=== PATIENT | female | born 1995 | race Caucasian/White ===

== ENCOUNTER 2025-04-28 06:02 | Day surgery (SDC) | payer MEDICAID, SELFPAY ==
[2025-04-27 11:10] VITALS: BMI 48.1
--- NOTE | 2025-04-27 13:18 | EXP.HP ---
History of Present Illness *Admission Date: 04/28/25 *History of present illness: Mrs. Varela is a 29-year-old female who is here for diagnostic upper endoscopy. The patient has struggled with dyspepsia (epigastric pain and discomfort), heartburn, reflux, nausea, vomiting, bloating and belching. The patient does have elevated liver chemistries and hepatomegaly. She has had some chronic diarrhea. She had cholecystectomy almost 10 years ago. Her paternal aunt had esophageal cancer diagnosed in her 50s or 60s. The examination is deemed medically necessary for diagnostic EGD. The patient has been seen, interviewed and examined prior to the procedure by both myself and the anesthesia provider. [facility] Disclaimer: The information contained in this section may have been updated after the patient was seen, as this information can be updated by other users. 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 Cigarette smoker Hyperlipidemia Anxiety Obesity Severe obesity (BMI >= 40) Migraine Vitamin D deficiency Fibrocystic disease of breast Edema Irritable bowel syndrome Prediabetes Bipolar disorder Recurrent major depression Dyslipidemia Hypertriglyceridemia Hyperinsulinism Surgical History Hx of appendectomy History of tubal ligation History of delivery Status post hysteroscopic ablation of endometrium History of cholecystectomy Family History Other Cancer Colon tumor Diabetes Heart disease Hypertension Non-Hodgkins lymphoma Tumor of pharynx Social History (Updated 04/28/25 @ 07:22 by Long Ceja CRNA) Smoking Status: Current every day smoker tobacco type: cigarettes alcohol intake: current alcohol intake frequency: holidays/special occasions only substance use type: denies use current occupational status: unemployed Travel in the last 8 weeks?: None Have you lived/traveled outside [place] in past 30 days?: No Contact w/someone who lives/traveled outside [place] past 30 days?: No Exposure to someone with infectious disease in past 14 days?: No Do you have a fever (greater than 100.4 F or 38 C)?: No Have you tested positive for COVID-19?: No Exposed to someone with COVID-19 in past 14 days?: No Do you have a sore throat?: No Do you have a cough?: No Do you have any weakness?: No Are you experiencing any nausea/vomitting?: No Do you have any diarrhea?: No Are you experiencing any unusual bleeding?: No Do you have any muscle aches/pain?: No Do you have any abdominal pain?: No Are you experiencing loss of taste or smell?: No Review of Systems Review of Systems Review of systems (narrative): Negative *Cardiovascular Comments: Negative *Gastrointestinal Comments: Negative *Genitourinary Comments: Negative *Musculoskeletal Comments: Negative *Neurologic Comments: Negative Meds Home Medications and Allergies Home Medications ?Medication ?Instructions ?Recorded ?Confirmed ?Type albuterol sulfate 90 mcg/actuation 1 puff inhalation NEEDED PRN 03/10/25 04/27/25 History aerosol inhaler (Ventolin HFA) Shortness Of Breath alprazolam 1 mg tablet 1 mg PO DAILY 03/10/25 04/27/25 History bupropion HCl 150 mg 24 hr tablet, 150 mg PO DAILY 03/10/25 04/27/25 History extended release cariprazine 1.5 mg capsule 1.5 mg PO DAILY 03/10/25 04/27/25 History (Vraylar) cholecalciferol (vitamin D3) 10 10 mcg PO DAILY 03/10/25 04/27/25 History mcg (400 unit) capsule folic acid 0.8 mg capsule 0.8 mg PO DAILY 03/10/25 04/27/25 History ondansetron 4 mg disintegrating 4 mg translingual NEEDED PRN 03/10/25 04/27/25 History tablet Nausea And Vomiting topiramate 50 mg tablet 50 mg PO BID 03/10/25 04/27/25 History semaglutide 0.25 mg or 0.5 mg (2 0.25 mg SQ WEEKLY 04/27/25 04/27/25 History mg/3 mL) subcutaneous pen injector (Ozempic) New Prescriptions to Start Prescriptions: Allergies Allergy/AdvReac Type Severity Reaction Status Date / Time clindamycin Allergy Intermediate Rash Verified 04/28/25 06:38 Penicillins Allergy Rash Verified 04/28/25 06:38 Exam Data for Last 24 hours I & O for Last 24 hours: Intake & Output 04/24/25 04/25/25 04/26/25 04/27/25 23:59 23:59 23:59 23:59 Weight 345 lb *Routine HEENT Exam Head: Present normocephalic Eye: Present EOMI and PERRL ENT: Present mucous membranes moist *Routine Neck Exam Neck: Present supple *Routine Respiratory Exam Respiratory: Present CTA bilaterally *Routine Cardiovascular Exam Cardiovascular: Present RRR *Routine Abdominal Exam Abdominal: Present soft and normoactive bowel sounds; Absent tenderness *Routine Rectal Exam Rectal:: deferred *Routine Genitalia Exam Genitalia:: deferred *Routine Extremities Exam Extremities: Absent cyanosis, clubbing or edema *Routine Skin Exam Skin: Present warm; Absent rash *Routine Neurological Exam Neurological: Present alert and oriented X3 Assessment and Plan *Assessment and plan (1) Epigastric pain: Status: Acute Category: Medical Code(s): R10.13 - Epigastric pain (2) Nausea & vomiting: Status: Acute Category: Medical Code(s): R11.2 - Nausea with vomiting, unspecified (3) Acid reflux: Status: Acute Category: Medical Code(s): K21.9 - Gastro-esophageal reflux disease without esophagitis (4) Belching: Status: Acute Category: Medical Code(s): R14.2 - Eructation (5) Bloating: Status: Acute Category: Medical Code(s): R14.0 - Abdominal distension (gaseous) Plan A/P: 1. Epigastric pain/dyspepsia, nausea, belching, bloating, reflux, heartburn and vomiting is the preprocedural diagnosis. The patient will be anesthetized/sedated using MAC sedation. The patient has been seen and examined. Cardiac and lung assessment prior to the examination is stable. Proceed with planned diagnostic EGD.
[2025-04-28 06:23] VITALS: BMI 48.1
[2025-04-28] MEDS: LACTATED RINGERS 1000ML 1,000 ML 50 ML IV (06:28)
[2025-04-28 06:29] VITALS: BP 133/81; PULSE 91; RESP 16; TEMP 36.2; O2SAT 97
[2025-04-28 06:35] LABS: Urine Pregnancy, HCG Qual. Negative (Negative)
--- NOTE | 2025-04-28 07:03 | HMH.PROCNOTE ---
[facility] Procedure Note Date: 04/28/25 Time: 07:44 Procedure Note:: Upper Endoscopy Procedure Report: Esophagogastroduodenoscopy with cold biopsies Endoscopost: Michael Anderson II, MD Referring Physician: JORGE L Moore Date of Procedure: April 28, 2025 Equipment: Olympus GIF-1100 standard upper endoscope Sedation: MAC sedation Indications: Mrs. Varela is a 29-year-old female who is here for diagnostic upper endoscopy. The patient has struggled with dyspepsia (epigastric pain and discomfort), heartburn, reflux, nausea, vomiting, bloating and belching. The patient also reports some early satiety. The patient does state that the symptoms have been going on for about 3 months. The patient has been on Ozempic which was stopped 1 week ago. This is her first upper endoscopy. The patient does have elevated liver chemistries and hepatomegaly. She has had some chronic diarrhea. She was given a fiber pill which is not helping. She had cholecystectomy almost 10 years ago. Her paternal aunt had esophageal cancer diagnosed in her 50s or 60s. The examination is deemed medically necessary for diagnostic EGD. Procedure: Prior to the procedure, a history and physical exam was performed, and patient's medications and allergies were reviewed. The risks, benefits and alternatives of the sedation and procedure were discussed with the patient. All questions were answered and informed consent was obtained. The patient was brought to the procedure room. Patient identification and proposed procedure were verified by the physician and the nurse. The patient was placed in a left lateral decubitus position and the scope was passed under direct vision. Throughout the procedure, the patient's blood pressure, pulse, and oxygen saturations were monitored continuously. The upper GI endoscopy was accomplished without difficulty. The patient tolerated the procedure well. Findings: The scope was passed directly into the upper esophagus and advanced to the third portion of the duodenum. The post bulbar duodenum, ampulla and duodenal bulb were normal with normal mucosa and conniventes. A cold biopsy was taken from the second portion of the duodenum for the disaccharidase assay. The scope was withdrawn through a normal duodenal bulb and pylorus into the stomach. There was bile reflux with linear reactive gastropathy of the antrum. A cold biopsy was taken at the incisura. There was a moderate amount of retained bile as well as solid and liquid food content within the body and fundus of the stomach with impaired visualization of the gastric body and fundus because of the food content. Upon retroflexion there was a very small sliding 1 to 2 cm hiatal hernia. The scope was then withdrawn into the esophagus. There was no evidence of reflux esophagitis or Mason's. There were tertiary contractions and evidence of mild esophageal dysmotility. The remainder of the esophageal mucosa was normal. Impression: 1. Nonerosive GERD with mild esophageal dysmotility and very small sliding 1 to 2 cm hiatal hernia 2. Solid and liquid food content within body of the stomach consistent with gastric dysmotility (GLP-1/Ozempic effect) 3. Bile reflux with mild linear reactive gastropathy Plan: I do feel that her dyspepsia and symptoms are related to Ozempic and certainly the findings of gastric dysmotility are related. I would hold this medication and definitely. We will address treatment of her dyspepsia and functional GERD and I will follow-up the biopsies and disaccharidase assay. I will add Colestid because of her diarrhea (presumably bile acid diarrhea) and consider diagnostic colonoscopy.
--- NOTE | 2025-04-28 07:21 | EXP.ANES.CKL ---
[facility] Disclaimer: The information contained in this section may have been updated after the patient was seen, as this information can be updated by other users. 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 Cigarette smoker Hyperlipidemia Anxiety Obesity Severe obesity (BMI >= 40) Migraine Vitamin D deficiency Fibrocystic disease of breast Edema Irritable bowel syndrome Prediabetes Bipolar disorder Recurrent major depression Dyslipidemia Hypertriglyceridemia Hyperinsulinism Surgical History Hx of appendectomy History of tubal ligation History of delivery Status post hysteroscopic ablation of endometrium History of cholecystectomy Family History Other Cancer Colon tumor Diabetes Heart disease Hypertension Non-Hodgkins lymphoma Tumor of pharynx Social History (Updated 04/28/25 @ 06:30 by Naye Posey RN) Smoking Status: Current every day smoker tobacco type: cigarettes alcohol intake: current alcohol intake frequency: holidays/special occasions only substance use type: denies use current occupational status: unemployed Travel in the last 8 weeks?: None [facility] Anesthesia Checklist Patient Identification Patient Identification: Arm Band Structural Data Admitted From: Home Planned Operative Procedure/s: EGD Consent for Planned Operative Procedure(s) Verified: Yes Verified Documents: Surgical Consent and History and Physical NPO Status Verified Time NPO: 00:00 Additional verifications Anesthesia Reactions: No Airway Assessment Mallampati Score:: Class II C-Spine Mobility Assessed: Yes TMJ Mobility Assessed: Yes Dentition: Good Dentition Neurological Assessment Level of Consciousness: Awake, Alert and Appropriate Anesthesia Plan Anesthesia Risk discussed: Yes Anesthesia Plan: Verified ASA Class: III Anesthesia Type: MAC
[2025-04-28 07:48] VITALS: BP 150/70; PULSE 95; RESP 16; TEMP 36.3; O2SAT 96
[2025-04-28 07:58] VITALS: BP 135/66; PULSE 82; RESP 16; O2SAT 95
[2025-04-28 08:08] VITALS: BP 143/66; PULSE 85; RESP 16; O2SAT 96
[2025-04-28 08:18] VITALS: BP 139/70; PULSE 80; RESP 16; O2SAT 96
[2025-04-28 23:07] LABS: POC Glucose,Bedside 115 gm/dL (70-110)
[2025-05-03 12:13] LABS: Interpretation Notes (.); Lactase 19.47 (>/= 14.0); Maltase 132.83 (>/= 110.0); Palatinase 10.08 (>/= 8.5); Reference Notes (.); Sucrase 27.81 (>/= 25.0)
== END 2025-04-28 08:18 | disposition home or self-care (01) ==
PROVIDERS: PCP Nurse Practitioner Family; Visit Provider Internal Medicine Gastroenterology
PROC: 0DJ08ZZ Inspection of Upper Intestinal Tract, Via Natural or Artificial Opening Endoscopic (ICD-10-PCS; CPT 43239; principal; 2025-04-28 07:30)
DX: K21.9 Gastro-esophageal reflux disease without esophagitis (principal); K22.4 Dyskinesia of esophagus; K44.9 Diaphragmatic hernia without obstruction or gangrene; K29.50 Unspecified chronic gastritis without bleeding; K31.89 Other diseases of stomach and duodenum; F17.210 Nicotine dependence, cigarettes, uncomplicated; Z88.0 Allergy status to penicillin; Z88.1 Allergy status to other antibiotic agents; E11.9 Type 2 diabetes mellitus without complications; F31.9 Bipolar disorder, unspecified; F41.9 Anxiety disorder, unspecified; R16.0 Hepatomegaly, not elsewhere classified; Z80.0 Family history of malignant neoplasm of digestive organs
CPT/HCPCS: 43239; 81025; 82657; 82962; J2003; J2704; J7120